=== PATIENT | male | born 1975 | race Hispanic/Latino ===

== ENCOUNTER 2017-08-31 20:31 | Emergency (ER) | payer SELFPAY ==
[2017-09-01] MEDS ORDERED: ULTRAM PO ONE (03:40)
[2017-09-01] MEDS ORDERED: ULTRAM ONE (03:46)
[2017-09-01 03:53] VITALS: BP 110/74
[2017-09-01] MEDS ORDERED: XYLOCAINE 1%/ EPI 1:100,000 INFILTRATI NR (04:00)
--- NOTE | 2017-09-01 04:10 | Emergency Department Report ---
Abscess Boil HPI - HPI Chief Complaint: Skin/Abscess/Foreign Body Stated Complaint: FEVER,ABSCESS Allergies/Adverse Reactions: Allergies Allergy/AdvReac Type Severity Reaction Status Date / Time No Known Allergies Allergy Unverified 08/31/17 20:43 ED Review of Systems ROS: Stated complaint: FEVER,ABSCESS Other details as noted in HPI ED Past Medical Hx - Past Medical History Hx Hypertension: Yes - Social History Smoking Status: Current Every Day Smoker Substance Use Type: Marijuana ED Abscess Boil Physical Exam - Exam General: Vital signs noted. No distress. Alert and acting appropriately. ED Course Vital Signs 08/31/17 09/01/17 20:38 03:52 Temperature 98.3 F 97.6 F Pulse Rate 101 H 72 Respiratory 16 16 Rate Blood Pressure 128/86 Blood Pressure 110/74 [Right] O2 Sat by Pulse 99 99 Oximetry Critical care attestation.: If time is entered above; I have spent that time in minutes in the direct care of this critically ill patient, excluding procedure time. ED Disposition Condition: Stable Referrals: PRIMARY CARE, [Primary Care Provider] - 3-5 Days
[2017-09-01] MEDS ORDERED: TORADOL IM ONE (04:44)
[2017-09-01] MEDS ORDERED: NORCO 10/325 PO ONE (04:44)
[2017-09-01] MEDS ORDERED: FLEXERIL PO ONE (04:45)
[2017-09-01] MEDS ORDERED: TRIPLE ANTIBIOTIC TP ONE (05:31)
== END 2017-09-01 06:15 | disposition home or self-care (01) ==
LOC: ED 20:31
DX: R50.9 Fever, unspecified (principal); I10 Essential (primary) hypertension; F17.210 Nicotine dependence, cigarettes, uncomplicated; F12.10 Cannabis abuse, uncomplicated
CPT/HCPCS: 87076; 87116; 87186; 96372; 99283; J1885; A6250

== ENCOUNTER 2018-08-08 23:09 | Inpatient (IN) | payer OTHER ==
[2018-08-09 00:13] LABS: Basophils # (Auto) 0.1 K/mm3 (0.0-0.1); Basophils % (Auto) 0.3 % (0.0-1.8); Eosinophils % (Auto) 0.3 % (0.0-4.3); Hematocrit 43.7 % (35.5-45.6); Hemoglobin 15.5 gm/dl (11.8-15.2); Lymphocytes # (Auto) 2.5 K/mm3 (1.2-5.4); Lymphocytes % (Auto) 15.5 % (13.4-35.0); Mean Corpuscular HGB Conc 35 % (32-34); Mean Corpuscular Hemoglobin 32 pg (28-32); Mean Corpuscular Volume 90 fl (84-94); Monocytes # (Auto) 1.2 K/mm3 (0.0-0.8); Monocytes % (Auto) 7.6 % (0.0-7.3); Platelet Count 198 K/mm3 (140-440); Red Blood Count 4.87 M/mm3 (3.65-5.03); Red Cell Distribution Width 12.6 % (13.2-15.2)
[2018-08-09] MEDS ORDERED: FIORICET PO ONE (00:23)
[2018-08-09] MEDS ORDERED: SUBLIMAZE IV ONE (00:23)
[2018-08-09] MEDS ORDERED: ZOFRAN IV ONE (00:23)
[2018-08-09] MEDS ORDERED: NACL 0.9% 1000 ML 1,000 ML IV ONE (00:23)
[2018-08-09 00:24] LABS: Calcium 9.7 mg/dL (8.4-10.2)
--- NOTE | 2018-08-09 00:30 | Emergency Department Report ---
HPI - General Chief Complaint: Syncope Time Seen by Provider: 08/09/18 00:16 - HPI HPI: Room 3 The patient is a 43-year-old male presenting with chief complaint of headache. The patient states while at work he began feeling lightheaded and developed one of his migraine headaches. Patient states he developed tingling along his right face, right upper extremity right trunk and right lower extremity that lasted approximately 15 minutes and then resolved. The patient states his headache has been constant frontal and also little region. The patient states his pain was so bad, home only was a passenger in the vehicle he had a syncopal episode. The patient currently gives his pain a score of 8/10 Location: [See above] Duration: [See above] Quality: Pain Severity: 8/10 Modifying factors: [see above] Context: [see above] Mode of transportation: [not driving] ED Past Medical Hx - Past Medical History Hx Hypertension: Yes Hx Headaches / Migraines: Yes - Surgical History Past Surgical History?: No - Family History Family history: no significant - Social History Smoking Status: Current Every Day Smoker Substance Use Type: Alcohol, Marijuana (denies illicit drug use) - Medications Home Medications: Home Medications Medication Instructions Recorded Confirmed Last Taken Type Sulfamethoxazole/Trimethoprim 1 each PO BID #14 tablet 09/01/17 Unknown Rx [Bactrim DS TAB] ED Review of Systems ROS: Stated complaint: LOW BP/WEAKNESS Other details as noted in HPI Constitutional: no symptoms reported Eyes: denies: eye pain ENT: denies: throat pain Respiratory: no symptoms reported Cardiovascular: denies: chest pain Endocrine: no symptoms reported Gastrointestinal: denies: abdominal pain Genitourinary: denies: dysuria Musculoskeletal: denies: back pain Neurological: headache, paresthesias Physical Exam - Physical Exam Vital Signs: Vital Signs 08/08/18 23:55 Respiratory 12 Rate Physical Exam: GENERAL: The patient is well-developed well-nourished male lying on stretcher with tall covering his eyes resting. [] HEENT: Normocephalic. Atraumatic. Extraocular motions are intact. Patient has moist mucous membranes. NECK: Supple. No meningitic signs are noted. Trachea midline CHEST/LUNGS: Clear to auscultation. There is no respiratory distress noted. HEART/CARDIOVASCULAR: Regular. There is no tachycardia. There is no gallop rub or murmur. ABDOMEN: Abdomen is soft, nontender. Patient has normal bowel sounds. There is no abdominal distention. SKIN: There is no rash. There is no edema. There is no diaphoresis. NEURO: The patient is awake, alert, and oriented. The patient is cooperative. The patient has no focal neurologic deficits. The patient has normal speech. Cranial nerves II through XII grossly intact MUSCULOSKELETAL:There is no evidence of acute injury. ED Course Vital Signs 08/08/18 23:55 Respiratory 12 Rate ED Medical Decision Making - Lab Data Result diagrams: 08/08/18 23:58 08/08/18 23:58 - Radiology Data Radiology results: report reviewed (CT head), image reviewed (CT head) [facility] [address] [place] [address] Cat Scan Report Signed Patient: HAMILTON GUAN MR#: [id number] : 1974 Acct:[id number] Age/Sex: 43 / M ADM Date: 08/08/18 Loc: ED Attending Dr: Ordering Physician: MARGO JOSHUA MD Date of Service: 08/09/18 Procedure(s): CT head/brain wo con Accession Number(s): [id number] cc: MARGO JOSHUA MD FINAL REPORT EXAM: CT HEAD/BRAIN WO CON HISTORY: headache TECHNIQUE: CT was performed from the foramen magnum through the vertex in the axial plane without the use of intravenous contrast. PRIORS: None. FINDINGS: The boles/white matter attenuation pattern is normal. There is no mass lesion or mass effect. There are no abnormal extra-axial fluid collections. There is no evidence of acute intracranial hemorrhage or infarct. The ventricles are of normal size and configuration. The skull and orbits are unremarkable. The visualized paranasal sinuses are clear. IMPRESSION: Normal CT of the head. Transcribed By: TRISTAN Dictated By: WILL SWIFT MD Electronically Authenticated By: WILL SWIFT MD Signed Date/Time: 08/09/18135 DD/ 5 TD/TT: 135 - Differential Diagnosis migraine headache, TIA, ICH, vasovagal syncope, Critical care attestation.: If time is entered above; I have spent that time in minutes in the direct care of this critically ill patient, excluding procedure time. ED Disposition Clinical Impression: Headache, Numbness on right side, Transient neurological symptoms, Syncope, Renal insufficiency Disposition: OP ADMIT IP TO THIS HOSP Is pt being admited?: Yes Does the pt Need Aspirin: No Condition: Stable Instructions: Syncope (ED) Time of Disposition: 01:53 (hospitalist paged (Dr. Anyi Bowling))
--- NOTE | 2018-08-09 01:37 | Cat Scan Report ---
FINAL REPORT EXAM: CT HEAD/BRAIN WO CON HISTORY: headache TECHNIQUE: CT was performed from the foramen magnum through the vertex in the axial plane without the use of intravenous contrast. PRIORS: None. FINDINGS: The boles/white matter attenuation pattern is normal. There is no mass lesion or mass effect. There are no abnormal extra-axial fluid collections. There is no evidence of acute intracranial hemorrhage or infarct. The ventricles are of normal size and configuration. The skull and orbits are unremarkable. The visualized paranasal sinuses are clear. IMPRESSION: Normal CT of the head.
[2018-08-09] MEDS ORDERED: ZOFRAN IV PRN (02:51)
[2018-08-09] MEDS ORDERED: TYLENOL PO PRN (02:51)
[2018-08-09] MEDS ORDERED: NACL 0.45% 1000 ML 1,000 ML IV SCH (03:00)
--- NOTE | 2018-08-09 03:06 | History and Physical Report ---
History of Present Illness Date of examination: 08/09/18 History of present illness: 43-year-old man with a history of migraine, hypertension comes to the emergency room with complaints of shortness of breath, feeling dizzy and almost passing out. Very difficult to get history from patient, he is uncooperative. Complaining of migraine headache Review of systems unobtainable, history is per the at bedside PAST MEDICAL HISTORY: migraine, hypertension PAST SURGICAL HISTORY: wrist SOCIAL HISTORY: No alcohol, no drugs, tobacco FAMILY HISTORY: Hypertension Medications and Allergies Allergies Allergy/AdvReac Type Severity Reaction Status Date / Time No Known Allergies Allergy Unverified 08/31/17 20:43 Home Medications Medication Instructions Recorded Confirmed Last Taken Type Sulfamethoxazole/Trimethoprim 1 each PO BID #14 tablet 09/01/17 Unknown Rx [Bactrim DS TAB] Active Meds: Active Medications Acetaminophen (Tylenol) 650 mg PO Q4H PRN PRN Reason: Pain MILD(1-3)/Fever >100.5/BLANCAS Enoxaparin Sodium (Lovenox) 30 mg SUB-Q QDAY COUNTS INCLUDE 234 BEDS AT THE [facility] Sodium Chloride (Nacl 0.45% 1000 Ml) 1,000 mls @ 150 mls/hr IV DIRECT MALDONADO Ondansetron HCl (Zofran) 4 mg IV Q8H PRN PRN Reason: Nausea And Vomiting Oxycodone/Acetaminophen (Percocet 5/325) 1 tab PO Q6H PRN PRN Reason: Pain, Moderate (4-6) Sodium Chloride (Sodium Chloride Flush Syringe 10 Ml) 10 ml IV BID COUNTS INCLUDE 234 BEDS AT THE [facility] Exam - Physical Exam Narrative exam: Gen. appearance: Patient lying in bed, no apparent distress HEENT: Normocephalic, atraumatic, pupils equally round and reactive to light, unable to assess extraocular movement, and no sclericterus,. No JVD or thyromegaly or nodule,neck supple, no carotid bruit ,mucous membranes moist, no exudate or erythema Heart: S1, S2, regular rate and rhythm Lungs: Clear bilaterally, breathing comfortable Abdomen: Positive bowel sounds, non-tender, nondistended, no organomegaly Extremity:no edema cyanosis, clubbing Skin: no rash, dry, warm Neuro: difficult to assess - Constitutional Vitals: Temp Pulse Resp BP Pulse Ox 93 H 17 105/75 08/09/18 01:00 08/09/18 01:00 08/09/18 01:33 Results - Labs CBC & Chem 7: 08/09/18 Unknown 08/09/18 Unknown Labs: Abnormal lab results 08/08/18 08/08/18 Range/Units 23:58 23:58 WBC 16.0 H (4.5-11.0) K/mm3 Hgb 15.5 H (11.8-15.2) gm/dl MCHC 35 H (32-34) % RDW 12.6 L (13.2-15.2) % [place] % (Auto) 7.6 H (0.0-7.3) % [place] # 1.2 H (0.0-0.8) K/mm3 Seg Neutrophils % 76.3 H (40.0-70.0) % Seg Neutrophils # 12.2 H (1.8-7.7) K/mm3 Sodium 134 L (137-145) mmol/L Carbon Dioxide 16 L (22-30) mmol/L BUN 32 H (9-20) mg/dL Creatinine 3.2 H (0.8-1.5) mg/dL Glucose 135 H (75-100) mg/dL - Imaging and Cardiology EKG: report reviewed CT Scan - head: report reviewed Assessment and Plan Assessment Renal failure, acute Near-syncope Hypertension Plan Admit to medicine Start IV fluids, check ultrasound of the kidneys Check cardiac enzymes, echo, carotid doppler, orthostatics Percocet for pain, dvt prophalaxis
[2018-08-09 04:24] LABS: Basophils # (Auto) 0.1 K/mm3 (0.0-0.1); Basophils % (Auto) 0.5 % (0.0-1.8); Eosinophils # (Auto) 0.1 K/mm3 (0.0-0.4); Hemoglobin 14.8 gm/dl (11.8-15.2); Lymphocytes % (Auto) 28.1 % (13.4-35.0); Mean Corpuscular HGB Conc 35 % (32-34); Mean Corpuscular Hemoglobin 31 pg (28-32); Mean Corpuscular Volume 91 fl (84-94); Monocytes # (Auto) 1.4 K/mm3 (0.0-0.8); Monocytes % (Auto) 9.6 % (0.0-7.3); Platelet Count 185 K/mm3 (140-440); Red Blood Count 4.73 M/mm3 (3.65-5.03); Red Cell Distribution Width 12.6 % (13.2-15.2)
[2018-08-09 04:48] LABS: Calcium 9.2 mg/dL (8.4-10.2)
[2018-08-09] MEDS: PERCOCET 5/325 PO PRN ×2 (06:43→11:40)
[2018-08-09 08:20] LABS: Bilirubin,Urine NEG (Negative); Blood,Urine NEG (Negative); Color,Urine Yellow (Yellow); Mucus,Urine FEW /HPF; Urobilinogen,Urine < 2.0 mg/dL (<2.0); White Blood Cell Casts,Urine 1 /LPF
[2018-08-09 08:30] VITALS: BP 110/67
[2018-08-09 08:43] LABS: Benzodiazepines Screen,Urine PRESUMPTIVE NEGATIVE; Cocaine Screen,Urine PRESUMPTIVE NEGATIVE; Methadone Screen,Urine PRESUMPTIVE NEGATIVE; Opiate Screen,Urine PRESUMPTIVE NEGATIVE
[2018-08-09 08:58] LABS: Amphetamine Screen,Urine PRESUMPTIVE POSITIVE; Cannabinoid Screen,Urine PRESUMPTIVE POSITIVE
[2018-08-09] MEDS ORDERED: SODIUM CHLORIDE FLUSH SYRINGE 10 ML IV SCH (10:00)
[2018-08-09] MEDS ORDERED: LOVENOX SUB-Q SCH (10:00)
[2018-08-09 10:27] LABS: Creatine Kinase MB 6.2 ng/mL (0.0-4.0)
--- NOTE | 2018-08-09 14:28 | Ultrasound Report ---
ULTRASOUND RENAL BILATERAL HISTORY: Acute renal failure. TECHNIQUE: transabdominal ultrasound with color Doppler interrogation. FINDINGS: Scans of the kidneys show normal renal contours. There is normal central calyceal clustering and good preservation of the cortical thickness. There is no evidence of mass or hydronephrosis. The views of the bladder and the region of the ureters appear normal. IMPRESSION: Unremarkable renal ultrasound.
--- NOTE | 2018-08-09 17:54 | Discharge Summary ---
Providers - Providers Date of Admission: 08/09/18 03:41 Date of discharge: 08/09/18 Attending physician: DULCE SANDS MD Primary care physician: DX BOARD OPERATOR Hospitalization Reason for admission: SOB, dizziness, ARF Condition: Stable Pertinent studies: Bilateral renal ultrasound, and echo reading was pending by the time the patient left AMA Hospital course: I have seen and evaluated the patient in the ED pending for admission, patient is admitted for dizziness, shortness of breath, polysubstance abuse and acute kidney injury. Patient was given IV fluids overnight and the plan is to admit to the floor for further management and care because of patient left AMA, despite explaining the risk of leaving AMA. Patient's UDS is positive for amphetamine, barbiturates, and marijuana. Disposition: [id number] LEFT AGAINST MED ADVICE Time spent for discharge: 32 minutes - Discharge Diagnoses (1) Substance abuse Status: Acute (2) Renal insufficiency Status: Acute (3) Syncope Status: Acute (4) Transient neurological symptoms Status: Acute Core Measure Documentation - Palliative Care Palliative Care/ Comfort Measures: Not Applicable - Core Measures Any of the following diagnoses?: none Exam - Physical Exam Narrative exam: Not in cardiopulmonary distress. The patient appeared well nourished and normally developed. Vital signs as documented. Head exam is unremarkable. No scleral icterus . Neck is without jugular venous distension, thyromegaly, or carotid bruits. Lungs are clear to auscultation. Cardiac exam reveals regular rate and Rhythm. First and second heart sounds normal. No murmurs, rubs or gallops. Abdominal exam reveals normal bowel sounds, no masses, no organomegaly and no aortic enlargement. Extremities are nonedematous and both femoral and pedal pulses are normal. ANIMAL SCIENCE PROFESSOR: Alert and oriented 3. No focal weakness. - Constitutional Vitals: Temp Pulse Resp BP Pulse Ox 89 16 110/67 97 08/09/18 07:50 08/09/18 07:02 08/09/18 07:50 08/09/18 07:02 Plan Activity: no restrictions Weight Bearing Status: Full Weight Bearing Diet: renal Follow up with: JONATHAN MOTA MD [Primary Care Provider] - 7 Days
== END 2018-08-09 13:19 | disposition left against medical advice (07) | DRG 312 ==
LOC: ED 23:09 → 4A 08-09 03:41
PROVIDERS: ADMIT Internal Medicine; ATTEND Internal Medicine
DX: R55 Syncope and collapse (principal); N17.9 Acute kidney failure, unspecified; I10 Essential (primary) hypertension; G43.909 Migraine, unspecified, not intractable, without status migrainosus; F17.200 Nicotine dependence, unspecified, uncomplicated; F10.10 Alcohol abuse, uncomplicated; Y90.9 Presence of alcohol in blood, level not specified; F12.10 Cannabis abuse, uncomplicated; Z82.49 Family history of ischemic heart disease and other diseases of the circulatory system; F15.10 Other stimulant abuse, uncomplicated
CPT/HCPCS: 36415; 70450; 76770; 80048; 80307; 81001; 82550; 82553; 84484; 85025; 93005; 93010; 93880; J1650; J2405; J3010; J7030